=== PATIENT | female | born 1990 | race Two or more races ===

== ENCOUNTER 2019-11-15 08:15 | Inpatient (IN) | payer OTHER ==
[~2019-11-15] VITALS: Ht 157.5 cm; Wt 74.4 kg
[2019-12-10] MEDS ORDERED: PRENATABS RX T1 EACH PO (07:29)
== END 2019-12-12 13:30 | disposition home or self-care (01) | DRG 807 ==
LOC: OB/GYN 12-07 08:15 → LDR 12-10 06:29 → OB/GYN 12-10 06:29
PROVIDERS: ADMIT Obstetrics & Gynecology; ATTEND Obstetrics & Gynecology
PROC: 10E0XZZ Delivery of Products of Conception, External Approach (ICD-10-PCS; principal; 2019-12-10)
PROC: 0KQM0ZZ Repair Perineum Muscle, Open Approach (ICD-10-PCS; 2019-12-10)
PROC: 4A1HXFZ Monitoring of Products of Conception, Cardiac Rhythm, External Approach (ICD-10-PCS; 2019-12-10)
PROC: 3E033VJ Introduction of Other Hormone into Peripheral Vein, Percutaneous Approach (ICD-10-PCS; 2019-12-10)
DX: O70.1 Second degree perineal laceration during delivery (principal); Z37.0 Single live birth; Z3A.40 40 weeks gestation of pregnancy; Z20.828 Contact with and (suspected) exposure to other viral communicable diseases